=== PATIENT | female | born 1950 | race Caucasian/White ===

== ENCOUNTER 2019-06-24 18:26 | Emergency (ER) | payer MEDICARE, OTHER ==
[2019-06-24] MEDS ORDERED: Ondansetron 4 MG Tab.DIS PO ONE (18:42)
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
== END 2019-06-24 19:30 | disposition home or self-care (01) ==
LOC: JD.ED 18:26
DX: F12.920 Cannabis use, unspecified with intoxication, uncomplicated (principal)
CPT/HCPCS: 99284; A9270; 99283